=== PATIENT | female | born 1950 | race Caucasian/White ===

== ENCOUNTER 2021-02-09 12:28 | Outpatient (CLI) | payer MEDICARE | END 2021-02-09 12:29 | disposition home or self-care (01) | LOC: PET 12:28 | PROVIDERS: ATTEND Psychiatry & Neurology Neurology | DX: G31.09 Other frontotemporal neurocognitive disorder (principal) | CPT/HCPCS: 78803; A9552 ==

== ENCOUNTER 2021-07-21 12:44 | Outpatient (CLI) | payer MEDICARE ==
[2021-07-21 14:23] LABS: Mean Corpuscular HGB CONC 32.3 g/dL (32.0-36.0); Mean Corpuscular Hemoglobin 30.6 pg (27.0-33.0); Mean Corpuscular Volume 94.7 fl (81.6-98.3); Mean Platelet Volume 11.6 fl (7.4-10.4); Platelet Count 306 10x3/uL (150-450); RBC Distribution Width 13.2 % (11.5-14.5); Red Blood Cell (RBC) Count 4.57 10x6/uL (3.90-5.03); White Blood Cell (WBC) Count 4.7 10x3/uL (3.5-10.5)
[2021-07-21 14:42] LABS: INR-International Normal Ratio 0.9; PTT 24.9 sec (22.0-33.0); Prothrombin Time 10.5 sec (9.5-12.1)
[2021-07-21 14:53] LABS: Anion Gap 12 mmol/L (10-20); BUN (Urea Nitrogen) 14 mg/dL (9.8-20.1); Calc. Creatinine Clearance 0 mL/min (70-130); Calcium 8.9 mg/dL (7.8-10.44); Carbon Dioxide 22 mmol/L (23-31); Chloride 110 mmol/L (98-107); Glucose 111 mg/dL (80-115); Potassium 3.5 mmol/L (3.5-5.1); Sodium 140 mmol/L (136-145)
[2021-07-22 14:14] LABS: SARS-CoV-2 PCR by NAA Not Detected (NotDetected)
== END 2021-07-21 12:45 | disposition home or self-care (01) ==
LOC: LABBT 12:44
PROVIDERS: ATTEND Urology
DX: Z01.818 Encounter for other preprocedural examination (principal); Z20.822 Contact with and (suspected) exposure to COVID-19
CPT/HCPCS: 80048; 85027; 85610; 85730; 87086; 93005; U0003; U0005; 93010

== ENCOUNTER 2021-07-25 09:56 | Day surgery (SDC) | payer MEDICARE ==
[2021-07-24 11:29] VITALS: BMI 25.0
[2021-07-25] MEDS ORDERED: Levofloxacin 500 mg/D5W 100 ml Premix Bag ONE (11:18)
[2021-07-25] MEDS ORDERED: Fentanyl 100 MCG/2 ML VIAL ONE (11:36)
[2021-07-25] MEDS ORDERED: Propofol 500 MG/50 ML VIAL ONE (11:36)
[2021-07-25] MEDS ORDERED: Lidocaine 4% Topical Sol 50 ML BOT ONE (12:10)
[2021-07-25] MEDS ORDERED: Iothalamate Meglumine 60% 50 ML VIAL FS ONE ×2 (12:10→12:12)
[2021-07-25] MEDS ORDERED: Ondansetron PF 4 MG/2 ML Vial ONE (12:23)
[2021-07-25] MEDS ORDERED: Lidocaine 1% PF 5 ML VIAL ONE (12:23)
[2021-07-25] MEDS ORDERED: ePHEDrine 50 MG/ML VIAL ONE (12:23)
[2021-07-25] MEDS ORDERED: PROPOFOL 200 MG/20 ML VIAL ONE (12:23)
[2021-07-25] MEDS ORDERED: Dexamethasone 20 MG/5 ML VIAL ONE (12:23)
== END 2021-07-25 14:40 | disposition home or self-care (01) ==
LOC: SDC 09:56
PROVIDERS: ATTEND Urology
PROC: BT141ZZ Fluoroscopy of Kidneys, Ureters and Bladder using Low Osmolar Contrast (ICD-10-PCS; principal; 2021-07-25)
DX: R31.21 Asymptomatic microscopic hematuria (principal); N35.92 Unspecified urethral stricture, female; G43.909 Migraine, unspecified, not intractable, without status migrainosus; I10 Essential (primary) hypertension; G31.09 Other frontotemporal neurocognitive disorder; F02.80 Dementia in other diseases classified elsewhere, unspecified severity, without behavioral disturbance, psychotic disturbance, mood disturbance, and anxiety; Z79.899 Other long term (current) drug therapy; Z88.5 Allergy status to narcotic agent
CPT/HCPCS: 52005; 74420; Q9961; J1100; J1956; J2405; J2704; J3010; J3490